=== PATIENT | female | born 1990 | race Caucasian/White ===

== ENCOUNTER 2017-04-03 03:05 | Emergency (ER) | payer OTHER ==
[~2017-04-03] VITALS: Ht 160 cm; Wt 79.4 kg
[2017-04-03 03:39] LABS: microscopic required? NO
[2017-04-03 03:47] LABS: BASOPHIL % 1.7 % (0-2); PLATELET COUNT 246 x10^3mcL (130-400); RED CELL DISTRIBUTION WIDTH 12.6 % (11.5-14.5)
[2017-04-03 04:04] LABS: UA SPECIFIC GRAVITY 1.025 (1.005-1.035); urine erythrocyte NEGATIVE (NEGATIVE)
[2017-04-03 04:18] LABS: CALCIUM 8.6 mg/dL (8.5-10.1); CARBON DIOXIDE 25.1 mmol/L (21-32); CHLORIDE SERUM 106 mmol/L (98-107); CREATININE SERUM 0.8 mg/dL (0.6-1.0); GFR1 > 60 mL/min; GLUCOSE SERUM 112 mg/dL (74-106); POTASSIUM SERUM 3.8 mmol/L (3.5-5.1); SODIUM SERUM 141 mmol/L (136-145)
[2017-04-03 04:22] LABS: ALBUMIN 3.5 g/dL (3.4-5.0); ALKALINE PHOSPHATASE 73 U/L (46-116); ALT/SGPT 26 U/L (14-59); AMYLASE 59 U/L (25-115); AST/SGOT 20 U/L (15-37); BILIRUBIN TOTAL 0.32 mg/dL (0.20-1.00); LIPASE 129 IU/L (73-393); TOTAL PROTEIN, SERUM 7.2 g/dL (6.4-8.2)
[2017-04-03 05:30] VITALS: BP 113/79
== END 2017-04-03 05:37 | disposition home or self-care (01) ==
LOC: ED 03:05
PROVIDERS: Emergency Medicine
DX: K80.80 Other cholelithiasis without obstruction (principal); J45.909 Unspecified asthma, uncomplicated
CPT/HCPCS: 36415; Q0162

== ENCOUNTER 2020-06-10 09:38 | Observation (INO) | payer OTHER ==
[~2020-06-10] VITALS: Ht 162.6 cm; Wt 72.1 kg
[2020-06-10 09:43] VITALS: Ht 162.6 cm; Wt 72.1 kg
--- NOTE | 2020-06-10 09:57 | NUR ---
PT BIB SELF C/C ABN NORMAL LAB WORK PER DR JAYY BARILLAS BACK TO REMOVE STONE STUCK IN THE BILE AWAITING FOR DR HEATHER SAHU
--- NOTE | 2020-06-10 10:07 | NUR ---
DR PASTOR AT BEDSIDE TO LUIS ALBERTO
--- NOTE | 2020-06-10 11:43 | NUR ---
PT GOING TO OR GAVE REPORT TO NIYA
--- NOTE | 2020-06-10 11:47 | NUR ---
MEDICATED PER MD ORDERS- SEE EMR
[2020-06-10 12:00] LABS: CALCIUM 9.2 mg/dL (8.5-10.1); CHLORIDE SERUM 98 mmol/L (98-107); CREATININE SERUM 0.5 mg/dL (0.6-1.0); GFR1 > 60 mL/min; GLUCOSE SERUM 90 mg/dL (74-106); POTASSIUM SERUM 4.4 mmol/L (3.5-5.1); SODIUM SERUM 135 mmol/L (136-145)
[2020-06-10 12:02] LABS: ALKALINE PHOSPHATASE 325 U/L (46-116); ALT/SGPT 659 U/L (14-59); AST/SGOT 294 U/L (15-37); BILIRUBIN TOTAL 7.9 mg/dL (0.20-1.00); LIPASE 205 IU/L (73-393); TOTAL PROTEIN, SERUM 7.7 g/dL (6.4-8.2)
[2020-06-10 12:03] LABS: ALBUMIN 3.3 g/dL (3.4-5.0)
[2020-06-10 12:24] LABS: BASOPHIL % 0.4 % (0-2); PLATELET COUNT 227 x10^3mcL (130-400)
[2020-06-10 12:38] LABS: RED CELL DISTRIBUTION WIDTH 15.2 % (11.5-14.5)
--- NOTE | 2020-06-10 13:35 | NUR ---
OR STAFF HERE TO TRANSFER PT TO OR
--- NOTE | 2020-06-10 16:06 | NUR ---
RECEIVED PATIENT, NOT IN DISTRESS, PALPABLE PULSES, NO EDEMA, CTA ON BLF, HYPOACTIVE BS, VOIDS FREELY, GENERALIZED WEAKNESS,INCISION AT RUQ WITH CDI DRESSING, S/P ERCP WITH SPHINTEROTOMY AND BALLOON DILATATION AND STONE EXTRACTION, RESHMA DRAIN WITH SEROSANGUINOUS DRAINAGE , ABD PAIN AT SURGICAL SITE 02/21, NO N/V/D, NO FLATUS, IV INTACT AT LH , NO REDNESS OR SWELLING, CALL LIGHT WITHIN REACH, BED AT LOWEST POSITION, SIDE RAILS UP. MRSA SWAB DONE.
[2020-06-10 16:09] VITALS: BP 118/82
--- NOTE | 2020-06-10 16:41 | NUR ---
D5NS INFUSING WELL . NO REDNESS OR SWELLING.
[2020-06-10 21:00] VITALS: BP 109/71
--- NOTE | 2020-06-11 02:23 | NUR ---
Pt in bed sleeping , not in respiratory distress
[2020-06-11 05:57] VITALS: BP 105/66
--- NOTE | 2020-06-11 07:10 | NUR ---
RECIEVED PT RESTING IN BED WITH NO C/O PAIN OR DISTRESS. A/O X4 WITH NO TOLBERT OR DIZZINESS. LUNGS CTAB WITH NO SOB NOTED. PT AMBULATORY. ABD INCISION DRESSING CDI. RLQ RESHMA DRAIN CDI WITH NO DRAINAGE AT THIS TIME. D5NS FOUND RUNNING IN LH AT 80ML/HR, IV CDI AND PATENT. SAFETY PRECAUTIONS IN PLACE, CALL LIGHT WITHIN REACH, WILL MONITOR.
[2020-06-11 07:23] LABS: BASOPHIL % 0.5 % (0-2); PLATELET COUNT 208 x10^3mcL (130-400)
[2020-06-11 07:39] LABS: ALKALINE PHOSPHATASE 295 U/L (46-116); ALT/SGPT 557 U/L (14-59); AST/SGOT 229 U/L (15-37); CALCIUM 8.6 mg/dL (8.5-10.1); CARBON DIOXIDE 27.8 mmol/L (21-32); CHLORIDE SERUM 101 mmol/L (98-107); CREATININE SERUM 0.8 mg/dL (0.6-1.0); GFR1 > 60 mL/min; GLUCOSE SERUM 85 mg/dL (74-106); POTASSIUM SERUM 3.4 mmol/L (3.5-5.1); SODIUM SERUM 136 mmol/L (136-145); TOTAL PROTEIN, SERUM 6.6 g/dL (6.4-8.2)
[2020-06-11 07:47] LABS: ALBUMIN 2.8 g/dL (3.4-5.0)
[2020-06-11 07:53] LABS: RED CELL DISTRIBUTION WIDTH 14.8 % (11.5-14.5)
[2020-06-11 08:43] VITALS: BP 98/64
--- NOTE | 2020-06-11 09:11 | NUR ---
TYLENOL GIVEN PER EMAR FOR C/O 04/23 ABD PAIN, WILL REASSESS.
[2020-06-11 12:36] VITALS: BP 110/63
[2020-06-11] MEDS ORDERED: MONTELUKAST SOD10 M1 PO (13:44)
[2020-06-11] MEDS ORDERED: CIPRO500 MG PO (13:46)
[2020-06-11] MEDS ORDERED: FLAGYL500 MG PO (13:47)
[2020-06-11] MEDS ORDERED: TYLENOL WITH CO1 TA2 PO (13:48)
[2020-06-11 16:24] VITALS: BP 103/67
[2020-06-11 17:16] VITALS: BP 103/67
--- NOTE | 2020-06-11 17:49 | NUR ---
PT STABLE TO DISCHARGE PER MD ORDER. ALL DISCHARGE INSTRUCTIONS, EDUCATION, PRESCRIPTIONS, AND IMAGES GIVEN TO PT AND SHE VERBALIZES UNDERSTANDING. IV REMOEVED WITH CATHETER INTACT, NO REDNESS OR INFLAMMATION NOTED TO SITE. ID BAND REMOVED. PT GIVEN SUPPLIES TO TAKE HOME AND EDUCATED ON RESHMA DRAIN AND INCISION SITE CARE. PT ESCORTED DOWN TO LOBBY VIA WC BY BECCA, ALL PERSONAL BELONGINGS IN HAND.
== END 2020-06-11 18:15 | disposition home or self-care (01) ==
LOC: ED 09:38 → MU 13:16
PROVIDERS: Emergency Medicine; ADMIT Internal Medicine; ATTEND Internal Medicine
DX: K80.20 Calculus of gallbladder without cholecystitis without obstruction (principal); R94.5 Abnormal results of liver function studies; J45.909 Unspecified asthma, uncomplicated
CPT/HCPCS: 43262; C1769; G0378; J0696; J1610; J2250; J2270; J2405; J3010; J7042; Q9967

== ENCOUNTER 2020-09-01 06:39 | Day surgery (SDC) | payer OTHER ==
[2020-08-27 15:11] LABS: BASOPHIL % 0.6 % (0-2); PLATELET COUNT 224 x10^3mcL (130-400); RED CELL DISTRIBUTION WIDTH 13.3 % (11.5-14.5)
[2020-08-27 15:40] LABS: ALBUMIN 3.6 g/dL (3.4-5.0); ALKALINE PHOSPHATASE 75 U/L (46-116); ALT/SGPT 25 U/L (14-59); AST/SGOT 19 U/L (15-37); CALCIUM 8.8 mg/dL (8.5-10.1); CARBON DIOXIDE 29.2 mmol/L (21-32); CHLORIDE SERUM 104 mmol/L (98-107); CREATININE SERUM 0.8 mg/dL (0.6-1.0); GFR1 > 60 mL/min; GLUCOSE SERUM 90 mg/dL (74-106); POTASSIUM SERUM 3.8 mmol/L (3.5-5.1); SODIUM SERUM 140 mmol/L (136-145); TOTAL PROTEIN, SERUM 7.5 g/dL (6.4-8.2)
[~2020-09-01] VITALS: Ht 160 cm; Wt 71.2 kg
[~2020-09-01 06:39] MED LIST: CIPRO500 MG PO; FLAGYL500 MG PO; MONTELUKAST SOD10 M1 PO; TYLENOL WITH CO1 TA2 PO
[2020-09-01 07:09] VITALS: BP 114/68
[2020-09-01 13:14] VITALS: BP 109/83
== END 2020-09-01 13:05 | disposition home or self-care (01) ==
LOC: DS 06:39 → OR 07:30 → DS 08:30 → OR 08:30 → DS 13:05
PROVIDERS: ATTEND Internal Medicine
DX: K80.50 Calculus of bile duct without cholangitis or cholecystitis without obstruction (principal); J45.909 Unspecified asthma, uncomplicated; Z79.82 Long term (current) use of aspirin; Z90.49 Acquired absence of other specified parts of digestive tract
CPT/HCPCS: 43260; C1769; C2625; J1610; J2250; J3010; Q9967